=== PATIENT | female | born 1960 | race Caucasian/White ===

== ENCOUNTER 2023-02-17 23:14 | Inpatient (IN) | payer OTHER ==
[~2023-02-17] VITALS: Ht 154.9 cm; Wt 91.6 kg
[2023-02-17 23:14] VITALS: BP_SYST 171
[2023-02-17] MEDS ORDERED: NACL 0.9% 1,000 ML IV ONE ×2 (23:30)
[2023-02-17 23:56] LABS: BASOPHILS # (AUTO) 0.2 K/uL (0.0-0.2); BASOPHILS % (AUTO) 1.1 % (0.0-2.0); EOSINOPHILS % (AUTO) 0.3 % (0.0-4.0); HEMOGLOBIN 15.1 g/dL (12.0-16.0); LYMPHOCYTES # (AUTO) 3.5 K/uL (1.0-5.5); LYMPHOCYTES % (AUTO) 24.7 % (20.5-51.5); MEAN CORPUSCULAR HEMOGLOBIN 30 pg (27-31); MEAN CORPUSCULAR HGB CONC 31 % (32-36); MEAN CORPUSCULAR VOLUME 96 fL (79.0-98.0); MONOCYTES # (AUTO) 0.5 K/uL (0.0-1.0); MONOCYTES % (AUTO) 3.6 % (1.7-9.3); NEUTROPHILS # (AUTO) 9.9 K/uL (1.8-7.7); NEUTROPHILS % (AUTO) 70.3 % (40.0-70.0); PLATELET COUNT (AUTO) 300 K/uL (130-430); RED BLOOD CELL COUNT(AUTO) 5.05 MIL/uL (4.2-6.2); RED CELL DISTRIBUTION WIDTH 16.1 % (9.0-15.0); WHITE BLOOD COUNT (AUTO) 14.2 K/uL (4.8-10.8)
[2023-02-18] VITALS (19 sets, daily range): BP systolic 121–164
[2023-02-18 00:03] LABS: HEMATOCRIT 45.3 % (36-48)
[2023-02-18] MEDS ORDERED: INSULIN REGULAR, HUMAN 100 UNITS in NS 99 ML IV ONE ×2 (00:15)
[2023-02-18] MEDS ORDERED: SODIUM BICARBONATE 8.4% JECT 100 MEQ in 0.45% NACL 1,000 ML IVP SCH (00:15)
[2023-02-18 00:30] LABS: ALANINE AMINOTRANSFERASE 31 U/L (12-78); ALBUMIN 4.1 g/dL (3.4-4.8); ANION GAP 31 (5-15); ASPARTATE AMINOTRANSFERASE 11 U/L (10-37); CALCIUM 9.2 mg/dL (8.4-11.0); CHLORIDE 96 mmol/L (98-107); CREATININE 1.88 mg/dL (0.55-1.30); GFR AFRICAN AMERICAN 35 mL/min (>90); THYROID STIMULATING HORMONE 1.76 uIu/mL (0.34-4.82); TOTAL BILIRUBIN 0.6 mg/dL (0.0-1.0); UREA NITROGEN, BLOOD 15 mg/dL (8-21)
[2023-02-18 00:37] LABS: ACETONE, SERUM SMALL (NEGATIVE)
[2023-02-18 00:41] LABS: GLUCOSE 634 mg/dL (70-99)
[2023-02-18 00:51] LABS: BARBITURATE, URINE NEGATIVE (NEG <=200)
[2023-02-18 00:52] LABS: BENZODIAZEPINE, URINE NEGATIVE (NEG <=150); CANNABINOID, URINE NEGATIVE (NEG <=50); COCAINE, URINE NEGATIVE (NEG <=150); METHAMPHETAMINES SCREEN,URINE NEGATIVE (NEG <=500); OPIATE, URINE NEGATIVE (NEG <=100); PHENCYCLIDINE SCREEN,URINE NEGATIVE (NEG <=25); URINE AMPHETAMINE NEGATIVE (NEG <=500); URINE METHADONE NEGATIVE (NEG <=200); URINE OXYCODONE SCREEN NEGATIVE (NEG <=100); URINE PROPOXYPHENE SCREEN NEGATIVE (NEG <=300)
[2023-02-18 00:53] LABS: UR TRICYCLIC ANTIDEPRESSANTS NEGATIVE (NEG <=300)
[2023-02-18] MEDS ORDERED: VANCOMYCIN HCL 1,000 MG in NS 250 ML IV ONE (01:00)
[2023-02-18] MEDS ORDERED: LORazepam 2 MG/ML VIAL IVP ONE ×3 (01:00→02:00)
[2023-02-18] MEDS ORDERED: KCL 40 mEq in 100 mL (PREMIX) 100 ML IV ONE (01:00)
[2023-02-18] MEDS ORDERED: MAGNESIUM SULFATE 50 ML IV ONE (01:00)
[2023-02-18] MEDS ORDERED: PIPERACILLIN/TAZO 3.375 GM in NS 50 ML IV ONE (01:00)
[2023-02-18 01:14] LABS: ACETAMINOPHEN < 1 ug/mL (1-30); ALCOHOL, BLOOD < 3 mg/dL (<10)
[2023-02-18] MEDS ORDERED: INSULIN REGULAR, HUMAN 10 UNITS/0.1 ML, 3 ML VIAL ONE (01:31)
[2023-02-18] MEDS ORDERED: KCL 20 mEq in 100 mL (PREMIX) 200 ML IV ONE (01:33)
[2023-02-18] MEDS: cefTRIAXone 1 GM IVPB PREMIX 50 ML IV SCH ×2 (02:00→07:52)
[2023-02-18] MEDS ORDERED: PIPERACILLIN/TAZOBACTAM 3.375 GM/VIAL (ZOSYN) IV ONE (02:30)
[2023-02-18] MEDS ORDERED: VANCOMYCIN HCL 1000 MG/VIAL IV ONE (02:31)
[2023-02-18 05:14] LABS: BASOPHILS # (AUTO) 0.1 K/uL (0.0-0.2); BASOPHILS % (AUTO) 0.4 % (0.0-2.0); EOSINOPHILS % (AUTO) 0.1 % (0.0-4.0); HEMATOCRIT 42.3 % (36-48); HEMOGLOBIN 12.3 g/dL (12.0-16.0); LYMPHOCYTES # (AUTO) 3.2 K/uL (1.0-5.5); LYMPHOCYTES % (AUTO) 12.5 % (20.5-51.5); MEAN CORPUSCULAR HEMOGLOBIN 29 pg (27-31); MEAN CORPUSCULAR HGB CONC 29 % (32-36); MEAN CORPUSCULAR VOLUME 100 fL (79.0-98.0); MONOCYTES # (AUTO) 1.2 K/uL (0.0-1.0); MONOCYTES % (AUTO) 4.6 % (1.7-9.3); NEUTROPHILS # (AUTO) 21.1 K/uL (1.8-7.7); PLATELET COUNT (AUTO) 288 K/uL (130-430); RED BLOOD CELL COUNT(AUTO) 4.25 MIL/uL (4.2-6.2); RED CELL DISTRIBUTION WIDTH 16.3 % (9.0-15.0); WHITE BLOOD COUNT (AUTO) 25.6 K/uL (4.8-10.8)
[2023-02-18 05:54] LABS: ALANINE AMINOTRANSFERASE 27 U/L (12-78); ALBUMIN 3.3 g/dL (3.4-4.8); ANION GAP 27 (5-15); ASPARTATE AMINOTRANSFERASE 15 U/L (10-37); CALCIUM 7.6 mg/dL (8.4-11.0); CHLORIDE 108 mmol/L (98-107); CHOLESTEROL 301 mg/dL (<200); CREATININE 1.61 mg/dL (0.55-1.30); GFR AFRICAN AMERICAN 42 mL/min (>90); HDL CHOLESTEROL 51 mg/dL (>55); THYROID STIMULATING HORMONE 0.62 uIu/mL (0.34-4.82); TOTAL BILIRUBIN 0.4 mg/dL (0.0-1.0); TRIGLYCERIDES 351 mg/dL (30-150); UREA NITROGEN, BLOOD 15 mg/dL (8-21)
[2023-02-18 06:03] LABS: GLUCOSE 563 mg/dL (70-99)
[2023-02-18] MEDS: NACL 0.9% 1,000 ML IV SCH ×3 (07:52→14:30)
[2023-02-18] MEDS ORDERED: cefTRIAXone 1 GM IVPB PREMIX 50 ML IV SCH (09:00)
[2023-02-18 11:00] LABS: NEUTROPHILS % (AUTO) 82.4 % (40.0-70.0)
[2023-02-18 11:28] LABS: BASOPHILS # (AUTO) 0.1 K/uL (0.0-0.2); BASOPHILS % (AUTO) 0.6 % (0.0-2.0); HEMATOCRIT 41.3 % (36-48); HEMOGLOBIN 12.7 g/dL (12.0-16.0); LYMPHOCYTES # (AUTO) 2.3 K/uL (1.0-5.5); LYMPHOCYTES % (AUTO) 11.1 % (20.5-51.5); MEAN CORPUSCULAR HEMOGLOBIN 29 pg (27-31); MEAN CORPUSCULAR HGB CONC 31 % (32-36); MEAN CORPUSCULAR VOLUME 95 fL (79.0-98.0); MONOCYTES # (AUTO) 1.3 K/uL (0.0-1.0); MONOCYTES % (AUTO) 6.3 % (1.7-9.3); NEUTROPHILS # (AUTO) 17.2 K/uL (1.8-7.7); PLATELET COUNT (AUTO) 242 K/uL (130-430); RED BLOOD CELL COUNT(AUTO) 4.36 MIL/uL (4.2-6.2); RED CELL DISTRIBUTION WIDTH 15.3 % (9.0-15.0)
[2023-02-18 11:36] LABS: ALANINE AMINOTRANSFERASE 31 U/L (12-78); ALBUMIN 3.6 g/dL (3.4-4.8); ANION GAP 26 (5-15); ASPARTATE AMINOTRANSFERASE 19 U/L (10-37); CHLORIDE 112 mmol/L (98-107); CREATININE 1.47 mg/dL (0.55-1.30); GFR AFRICAN AMERICAN 46 mL/min (>90); GLUCOSE 218 mg/dL (70-99); TOTAL BILIRUBIN 0.4 mg/dL (0.0-1.0); UREA NITROGEN, BLOOD 14 mg/dL (8-21)
[2023-02-18] MEDS ORDERED: DEXTROSE 50% JECT 50 ML DISP.SYRIN IVP PRN (11:45)
[2023-02-18 11:47] LABS: ACETONE, SERUM POSITIVE (NEGATIVE)
[2023-02-18] MEDS: PIPERACILLIN/TAZO 3.375/DEX-IS 50 ML IV SCH ×2 (14:31→21:19)
[2023-02-18] MEDS ORDERED: LORazepam 2 MG/ML VIAL ONE (17:12)
[2023-02-18] MEDS: KCL 10 mEq in D5/0.45NS 1000mL 1,000 ML IV SCH (17:57)
[2023-02-18 21:28] LABS: CALCIUM 7.9 mg/dL (8.4-11.0); CREATININE 1.63 mg/dL (0.55-1.30)
[2023-02-18 22:16] LABS: URINE SODIUM, RANDOM 94 mmol/L (40-220)
[2023-02-18] MEDS: LORazepam 2 MG/ML VIAL IVP PRN (22:40)
[2023-02-19] VITALS (23 sets, daily range): BP systolic 87–174
[2023-02-19 04:50] LABS: BASOPHILS % (AUTO) 0.3 % (0.0-2.0); HEMATOCRIT 38.5 % (36-48); HEMOGLOBIN 12.5 g/dL (12.0-16.0); LYMPHOCYTES # (AUTO) 0.9 K/uL (1.0-5.5); LYMPHOCYTES % (AUTO) 8.2 % (20.5-51.5); MEAN CORPUSCULAR HEMOGLOBIN 30 pg (27-31); MEAN CORPUSCULAR HGB CONC 33 % (32-36); MEAN CORPUSCULAR VOLUME 91 fL (79.0-98.0); MONOCYTES % (AUTO) 9.2 % (1.7-9.3); NEUTROPHILS # (AUTO) 9.4 K/uL (1.8-7.7); NEUTROPHILS % (AUTO) 82.3 % (40.0-70.0); PLATELET COUNT (AUTO) 170 K/uL (130-430); RED BLOOD CELL COUNT(AUTO) 4.23 MIL/uL (4.2-6.2); RED CELL DISTRIBUTION WIDTH 15.1 % (9.0-15.0); WHITE BLOOD COUNT (AUTO) 11.4 K/uL (4.8-10.8)
[2023-02-19] MEDS: PIPERACILLIN/TAZO 3.375/DEX-IS 50 ML IV SCH ×3 (05:15→23:43)
[2023-02-19] MEDS: KCL 10 mEq in D5/0.45NS 1000mL 1,000 ML IV SCH ×3 (05:15→20:02)
[2023-02-19 05:25] LABS: CALCIUM 7.8 mg/dL (8.4-11.0); CREATININE 1.86 mg/dL (0.55-1.30); TOTAL BILIRUBIN 0.5 mg/dL (0.0-1.0)
[2023-02-19 05:54] LABS: PHOSPHORUS 0.8 mg/dL (2.7-4.5)
[2023-02-19] MEDS ORDERED: K PHOS 30 MM in NS 250 ML IV ONE (07:15)
[2023-02-19] MEDS ORDERED: POTASSIUM CHLORIDE 40 MEQ, LIDOCAINE JECT 2% PF 100 MG 75 MG in NS 250 ML IV ONE (07:15)
[2023-02-19] MEDS: INSULIN REGULAR, HUMAN 100 UNITS in NS 99 ML IV SCH ×4 (10:23→17:13)
[2023-02-19 14:33] LABS: BILIRUBIN,URINE 1+ (NEGATIVE); BLOOD, URINE 3+ (NEGATIVE); COLOR,URINE YELLOW (YELLOW); GLUCOSE,URINE 2+ (NEGATIVE); KETONES,URINE 1+ (NEGATIVE); LEUKOCYTE ESTERASE ,URINE NEGATIVE (NEGATIVE); NITRITE, URINE NEGATIVE (NEGATIVE); PROTEIN URINE 1+ (NEGATIVE); UROBILINOGEN,URINE 0.2 (0.2-1.0)
[2023-02-19 14:35] LABS: CLARITY/URINE HAZY (CLEAR)
[2023-02-19 14:56] LABS: BACTERIA,URINE MODERATE /HPF (None Seen)
[2023-02-19 14:57] LABS: YEAST,URINE Moderate /HPF (None Seen)
[2023-02-19 21:27] LABS: CALCIUM 7.7 mg/dL (8.4-11.0); CREATININE 2.4 mg/dL (0.55-1.30)
[2023-02-19] MEDS: LORazepam 2 MG/ML VIAL IVP PRN (23:47)
[2023-02-20] VITALS (28 sets, daily range): BP systolic 73–188
[2023-02-20] MEDS: KCL 10 mEq in D5/0.45NS 1000mL 1,000 ML IV SCH ×2 (01:44→08:08)
[2023-02-20] MEDS: PIPERACILLIN/TAZO 3.375/DEX-IS 50 ML IV SCH ×3 (06:39→21:28)
[2023-02-20] MEDS: LORazepam 2 MG/ML VIAL IVP PRN (06:40)
[2023-02-20 07:21] LABS: BASOPHILS % (AUTO) 0.3 % (0.0-2.0); EOSINOPHILS % (AUTO) 0.2 % (0.0-4.0); HEMATOCRIT 43.9 % (36-48); HEMOGLOBIN 14.1 g/dL (12.0-16.0); LYMPHOCYTES # (AUTO) 0.4 K/uL (1.0-5.5); LYMPHOCYTES % (AUTO) 3.1 % (20.5-51.5); MEAN CORPUSCULAR HEMOGLOBIN 29 pg (27-31); MEAN CORPUSCULAR HGB CONC 32 % (32-36); MEAN CORPUSCULAR VOLUME 91 fL (79.0-98.0); MONOCYTES % (AUTO) 7.9 % (1.7-9.3); NEUTROPHILS # (AUTO) 11.3 K/uL (1.8-7.7); NEUTROPHILS % (AUTO) 88.5 % (40.0-70.0); PLATELET COUNT (AUTO) 154 K/uL (130-430); RED BLOOD CELL COUNT(AUTO) 4.81 MIL/uL (4.2-6.2); RED CELL DISTRIBUTION WIDTH 15.8 % (9.0-15.0); WHITE BLOOD COUNT (AUTO) 12.7 K/uL (4.8-10.8)
[2023-02-20] MEDS: INSULIN REGULAR, HUMAN 100 UNITS in NS 99 ML IV SCH ×4 (07:44→13:45)
[2023-02-20 07:48] LABS: CALCIUM 7.9 mg/dL (8.4-11.0); CREATININE 2.38 mg/dL (0.55-1.30); PHOSPHORUS 2.9 mg/dL (2.7-4.5)
[2023-02-20] MEDS ORDERED: ROCURONIUM BROMIDE 10 MG/ML (ZEMURON) ONE (08:00)
[2023-02-20] MEDS ORDERED: ETOMIDATE 20 MG/ 10 ML VIAL (AMIDATE) ONE (08:00)
[2023-02-20] MEDS ORDERED: ETOMIDATE 20 MG/ 10 ML VIAL (AMIDATE) IVP ONE ×2 (09:30→09:35)
[2023-02-20] MEDS ORDERED: ROCURONIUM BROMIDE 10 MG/ML (ZEMURON) IV ONE (09:30)
[2023-02-20] MEDS ORDERED: KCL 30mEq in D5/0.45NS 1000 mL 1,000 ML IV SCH (10:15)
[2023-02-20] MEDS ORDERED: ACETYLCYSTEINE 20% 4 ML VIAL (RT) ONE (10:16)
[2023-02-20] MEDS ORDERED: BUDESONIDE 0.5 MG/2 ML AMPUL.NEB INH ONE (10:30)
[2023-02-20] MEDS ORDERED: IPRATROPIUM/ALBUTEROL SULFATE 3 ML AMPUL.NEB (DUONEB) INH PRN (10:30)
[2023-02-20] MEDS ORDERED: ACETYLCYSTEINE 20% 4 ML VIAL (RT) INH ONE (10:30)
[2023-02-20] MEDS ORDERED: ALBUTEROL SULFATE 0.083% 2.5 MG/3 ML VIAL.NEB INH PRN (10:45)
[2023-02-20] MEDS ORDERED: IPRATROPIUM BROM 0.5 MG/2.5 ML VIAL.NEB (ATROVENT) INH PRN (10:45)
[2023-02-20] MEDS ORDERED: PANTOPRAZOLE SODIUM 40 MG/VIAL (PROTONIX) IVP ONE (10:45)
[2023-02-20] MEDS ORDERED: ENOXAPARIN SODIUM 30 MG/0.3 ML SYRINGE SUBCUT ONE (11:00)
[2023-02-20] MEDS ORDERED: POTASSIUM CHLORIDE IV SCH ×2 (11:00→23:00)
[2023-02-20] MEDS ORDERED: IPRATROPIUM/ALBUTEROL SULFATE 3 ML AMPUL.NEB (DUONEB) INH SCH ×2 (11:00)
[2023-02-20] MEDS ORDERED: NACL 0.45% IV SCH ×2 (11:00→23:00)
[2023-02-20] MEDS: MIDAZOLAM IN NACL,ISO-OSMOT/PF 100 ML IV PRN ×2 (11:38→20:52)
[2023-02-20] MEDS: IPRATROPIUM BROM 0.5 MG/2.5 ML VIAL.NEB (ATROVENT) INH SCH ×3 (11:48→19:45)
[2023-02-20] MEDS: ALBUTEROL SULFATE 0.083% 2.5 MG/3 ML VIAL.NEB INH SCH ×3 (11:48→19:45)
[2023-02-20] MEDS ORDERED: POTASSIUM CHLORIDE 40 MEQ, LIDOCAINE JECT 2% PF 100 MG 50 MG in NS 250 ML IV ONE (12:00)
[2023-02-20] MEDS ORDERED: SODIUM BICARBONATE 8.4% JECT 50 MEQ/50 ML SYRINGE IVP ONE ×3 (12:44→16:45)
[2023-02-20] MEDS ORDERED: SODIUM BICARBONATE 8.4% JECT 50 MEQ/50 ML SYRINGE ONE (13:05)
[2023-02-20 13:06] LABS: CREATININE, URINE 26.4 mg/dL (Not Estab.); MICROALBUMIN URINE RANDOM 160.1 ug/mL (Not Estab.)
[2023-02-20] MEDS ORDERED: JECT IV ONE (13:15)
[2023-02-20] MEDS ORDERED: NACL 0.45% IV ONE (13:15)
[2023-02-20] MEDS ORDERED: SODIUM BICARBONATE 8.4% IV ONE (13:15)
[2023-02-20] MEDS ORDERED: POTASSIUM CHLORIDE IV ONE (13:15)
[2023-02-20] MEDS: FENTANYL CITRATE-0.9 % NACL/PF 100 ML IV PRN ×2 (14:28→20:51)
[2023-02-20] MEDS ORDERED: NOREPINEPHRINE 4 MG/4 ML VIAL IV ONE (15:10)
[2023-02-20] MEDS: NOREPINEPHRINE BITARTRATE 4 MG in NS 246 ML IV PRN ×2 (15:16→22:37)
[2023-02-20] MEDS ORDERED: INSULIN REGULAR, HUMAN 100 UNITS in NS 99 ML IV PRN ×2 (16:30)
[2023-02-20] MEDS: FLUCONAZOLE 100 mg/ NS 50 ML IV SCH (17:24)
[2023-02-20] MEDS ORDERED: COMMUNICATION ORDER XX PRN (19:00)
[2023-02-20] MEDS: BUDESONIDE 0.5 MG/2 ML AMPUL.NEB INH SCH (19:45)
[2023-02-20] MEDS: SODIUM BICARBONATE 8.4% JECT 100 MEQ in 0.45% NACL 1,000 ML IVP SCH (20:26)
[2023-02-20 21:30] LABS: ALBUMIN 2.1 g/dL (3.4-4.8); CALCIUM 7.2 mg/dL (8.4-11.0); CREATININE 2.7 mg/dL (0.55-1.30); TOTAL BILIRUBIN 0.7 mg/dL (0.0-1.0)
[2023-02-20] MEDS ORDERED: KCL 40 mEq in 100 mL (PREMIX) 100 ML IV ONE ×2 (22:30→22:36)
[2023-02-20] MEDS ORDERED: JECT IV SCH (23:00)
[2023-02-20] MEDS ORDERED: SODIUM BICARBONATE 8.4% IV SCH (23:00)
[2023-02-21] VITALS (32 sets, daily range): BP systolic 91–138
[2023-02-21] MEDS: FENTANYL CITRATE-0.9 % NACL/PF 100 ML IV PRN ×4 (00:08→18:06)
[2023-02-21] MEDS: SODIUM BICARBONATE 8.4% JECT 100 MEQ in 0.45% NACL 1,000 ML IVP SCH ×3 (04:07→21:38)
[2023-02-21] MEDS: ALBUTEROL SULFATE 0.083% 2.5 MG/3 ML VIAL.NEB INH SCH ×7 (04:14→23:12)
[2023-02-21] MEDS: IPRATROPIUM BROM 0.5 MG/2.5 ML VIAL.NEB (ATROVENT) INH SCH ×7 (04:14→23:12)
[2023-02-21] MEDS: PIPERACILLIN/TAZO 3.375/DEX-IS 50 ML IV SCH ×3 (05:46→22:12)
[2023-02-21] MEDS: MIDAZOLAM IN NACL,ISO-OSMOT/PF 100 ML IV PRN ×2 (06:22→17:46)
[2023-02-21 06:37] LABS: ALBUMIN 1.7 g/dL (3.4-4.8); CREATININE 2.86 mg/dL (0.55-1.30); TOTAL BILIRUBIN 0.7 mg/dL (0.0-1.0)
[2023-02-21] MEDS: BUDESONIDE 0.5 MG/2 ML AMPUL.NEB INH SCH ×2 (07:00→20:03)
[2023-02-21] MEDS ORDERED: ACETYLCYSTEINE 20% 4 ML VIAL (RT) INH ONE (07:00)
[2023-02-21] MEDS: INSULIN REGULAR, HUMAN 100 UNITS in NS 99 ML IV PRN ×6 (08:24→12:13)
[2023-02-21 08:33] LABS: BASOPHILS % (AUTO) 0.1 % (0.0-2.0); EOSINOPHILS % (AUTO) 0.1 % (0.0-4.0); HEMATOCRIT 34.2 % (36-48); HEMOGLOBIN 11.1 g/dL (12.0-16.0); LYMPHOCYTES # (AUTO) 1.4 K/uL (1.0-5.5); LYMPHOCYTES % (AUTO) 11.9 % (20.5-51.5); MEAN CORPUSCULAR HEMOGLOBIN 30 pg (27-31); MEAN CORPUSCULAR HGB CONC 32 % (32-36); MEAN CORPUSCULAR VOLUME 91 fL (79.0-98.0); MONOCYTES % (AUTO) 8.7 % (1.7-9.3); NEUTROPHILS % (AUTO) 79.2 % (40.0-70.0); PLATELET COUNT (AUTO) 152 K/uL (130-430); RED BLOOD CELL COUNT(AUTO) 3.76 MIL/uL (4.2-6.2); RED CELL DISTRIBUTION WIDTH 15.7 % (9.0-15.0); WHITE BLOOD COUNT (AUTO) 11.4 K/uL (4.8-10.8)
[2023-02-21] MEDS: ENOXAPARIN SODIUM 30 MG/0.3 ML SYRINGE SUBCUT SCH (08:51)
[2023-02-21] MEDS: PANTOPRAZOLE SODIUM 40 MG/VIAL (PROTONIX) IVP SCH (08:52)
[2023-02-21] MEDS: metroNIDAZOLE 500 mg/NS 100 ML IV SCH ×2 (11:31→20:54)
[2023-02-21] MEDS ORDERED: FLUCONAZOLE 100 mg/ NS 50 ML IV SCH (12:30)
[2023-02-21] MEDS ORDERED: MAGNESIUM SULFATE 50 ML IV ONE (14:15)
[2023-02-21] MEDS: FLUCONAZOLE 100 mg/ NS 50 ML IV SCH (17:34)
[2023-02-21] MEDS: NOREPINEPHRINE BITARTRATE 4 MG in NS 246 ML IV PRN ×2 (17:47→17:50)
[2023-02-22] VITALS (35 sets, daily range): BP systolic 93–137
[2023-02-22] MEDS: FENTANYL CITRATE-0.9 % NACL/PF 100 ML IV PRN ×3 (02:56→20:24)
[2023-02-22] MEDS: IPRATROPIUM BROM 0.5 MG/2.5 ML VIAL.NEB (ATROVENT) INH SCH ×6 (03:34→23:22)
[2023-02-22] MEDS: ALBUTEROL SULFATE 0.083% 2.5 MG/3 ML VIAL.NEB INH SCH ×6 (03:34→23:22)
[2023-02-22] MEDS ORDERED: INSULIN REGULAR, HUMAN 10 UNITS/0.1 ML, 3 ML VIAL IVP ONE ×5 (03:40→17:30)
[2023-02-22] MEDS: INSULIN REGULAR, HUMAN 100 UNITS in NS 99 ML IV PRN ×2 (05:02)
[2023-02-22 05:30] LABS: BASOPHILS % (AUTO) 0.3 % (0.0-2.0); EOSINOPHILS # (AUTO) 0.2 K/uL (0.0-0.4); EOSINOPHILS % (AUTO) 1.7 % (0.0-4.0); HEMATOCRIT 27.6 % (36-48); HEMOGLOBIN 9.5 g/dL (12.0-16.0); LYMPHOCYTES # (AUTO) 2.4 K/uL (1.0-5.5); LYMPHOCYTES % (AUTO) 24.8 % (20.5-51.5); MEAN CORPUSCULAR HEMOGLOBIN 30 pg (27-31); MEAN CORPUSCULAR HGB CONC 34 % (32-36); MEAN CORPUSCULAR VOLUME 87 fL (79.0-98.0); MONOCYTES # (AUTO) 0.6 K/uL (0.0-1.0); MONOCYTES % (AUTO) 5.8 % (1.7-9.3); NEUTROPHILS # (AUTO) 6.5 K/uL (1.8-7.7); NEUTROPHILS % (AUTO) 67.4 % (40.0-70.0); PLATELET COUNT (AUTO) 135 K/uL (130-430); RED BLOOD CELL COUNT(AUTO) 3.19 MIL/uL (4.2-6.2); RED CELL DISTRIBUTION WIDTH 14.9 % (9.0-15.0); WHITE BLOOD COUNT (AUTO) 9.7 K/uL (4.8-10.8)
[2023-02-22] MEDS: MIDAZOLAM IN NACL,ISO-OSMOT/PF 100 ML IV PRN ×2 (05:59→18:18)
[2023-02-22] MEDS: PIPERACILLIN/TAZO 3.375/DEX-IS 50 ML IV SCH (06:00)
[2023-02-22 06:01] LABS: ALBUMIN 1.5 g/dL (3.4-4.8); CREATININE 3.65 mg/dL (0.55-1.30); TOTAL BILIRUBIN 0.6 mg/dL (0.0-1.0)
[2023-02-22 06:25] LABS: CALCIUM 6.6 mg/dL (8.4-11.0); PHOSPHORUS 0.6 mg/dL (2.7-4.5)
[2023-02-22] MEDS: SODIUM BICARBONATE 8.4% JECT 100 MEQ in 0.45% NACL 1,000 ML IVP SCH ×2 (07:03→16:00)
[2023-02-22] MEDS: BUDESONIDE 0.5 MG/2 ML AMPUL.NEB INH SCH ×2 (08:09→19:46)
[2023-02-22] MEDS: ENOXAPARIN SODIUM 30 MG/0.3 ML SYRINGE SUBCUT SCH (08:17)
[2023-02-22] MEDS: metroNIDAZOLE 500 mg/NS 100 ML IV SCH ×2 (08:17→22:01)
[2023-02-22] MEDS: PANTOPRAZOLE SODIUM 40 MG/VIAL (PROTONIX) IVP SCH (08:17)
[2023-02-22] MEDS ORDERED: COMMUNICATION ORDER XX ONE (09:00)
[2023-02-22] MEDS ORDERED: COMMUNICATION ORDER XX PRN (09:15)
[2023-02-22] MEDS ORDERED: CALCIUM GLUCONATE 2 GM in NS 100 ML IV ONE (10:00)
[2023-02-22] MEDS ORDERED: FUROSEMIDE 20 MG/2 ML VIAL IVP ONE (10:00)
[2023-02-22] MEDS: CALCIUM GLUCONATE 1 GM in NS 100 ML IV SCH ×2 (10:37→11:27)
[2023-02-22] MEDS ORDERED: K PHOS 30 MM in NS 250 ML IV ONE (11:00)
[2023-02-22] MEDS: PIPERACILLIN/TAZO 3.375 GM in NS 50 ML IV SCH ×2 (13:13→22:01)
[2023-02-22] MEDS ORDERED: NACL 0.9% 1,000 ML IV SCH (17:00)
[2023-02-22] MEDS ORDERED: POTASSIUM CHLORIDE 40 MEQ, LIDOCAINE JECT 2% PF 100 MG 75 MG in NS 250 ML IV ONE (17:00)
[2023-02-22] MEDS: FLUCONAZOLE 100 mg/ NS 50 ML IV SCH (17:19)
[2023-02-22] MEDS: 0.45% NACL 1,000 ML IV SCH (17:54)
[2023-02-23] VITALS (34 sets, daily range): BP systolic 14–164
[2023-02-23] MEDS: ALBUTEROL SULFATE 0.083% 2.5 MG/3 ML VIAL.NEB INH SCH ×6 (02:36→23:35)
[2023-02-23] MEDS: IPRATROPIUM BROM 0.5 MG/2.5 ML VIAL.NEB (ATROVENT) INH SCH ×6 (02:37→23:35)
[2023-02-23] MEDS: FENTANYL CITRATE-0.9 % NACL/PF 100 ML IV PRN ×2 (04:30→17:10)
[2023-02-23] MEDS: PIPERACILLIN/TAZO 3.375 GM in NS 50 ML IV SCH ×3 (06:32→22:03)
[2023-02-23 07:17] LABS: BASOPHILS % (AUTO) 0.3 % (0.0-2.0); EOSINOPHILS # (AUTO) 0.3 K/uL (0.0-0.4); EOSINOPHILS % (AUTO) 3.6 % (0.0-4.0); HEMATOCRIT 30.8 % (36-48); HEMOGLOBIN 10.5 g/dL (12.0-16.0); LYMPHOCYTES # (AUTO) 1.9 K/uL (1.0-5.5); LYMPHOCYTES % (AUTO) 20.6 % (20.5-51.5); MEAN CORPUSCULAR HEMOGLOBIN 30 pg (27-31); MEAN CORPUSCULAR HGB CONC 34 % (32-36); MEAN CORPUSCULAR VOLUME 87 fL (79.0-98.0); MONOCYTES # (AUTO) 0.8 K/uL (0.0-1.0); MONOCYTES % (AUTO) 8.7 % (1.7-9.3); NEUTROPHILS # (AUTO) 6.2 K/uL (1.8-7.7); NEUTROPHILS % (AUTO) 66.8 % (40.0-70.0); PLATELET COUNT (AUTO) 140 K/uL (130-430); RED BLOOD CELL COUNT(AUTO) 3.53 MIL/uL (4.2-6.2); RED CELL DISTRIBUTION WIDTH 15.6 % (9.0-15.0); WHITE BLOOD COUNT (AUTO) 9.2 K/uL (4.8-10.8)
[2023-02-23] MEDS: BUDESONIDE 0.5 MG/2 ML AMPUL.NEB INH SCH ×2 (07:17→19:53)
[2023-02-23 07:34] LABS: CALCIUM 7.2 mg/dL (8.4-11.0); CREATININE 3.97 mg/dL (0.55-1.30); PHOSPHORUS 1.7 mg/dL (2.7-4.5)
[2023-02-23] MEDS: 0.45% NACL 1,000 ML IV SCH ×2 (08:59→18:41)
[2023-02-23] MEDS: PANTOPRAZOLE SODIUM 40 MG/VIAL (PROTONIX) IVP SCH (10:48)
[2023-02-23] MEDS: ENOXAPARIN SODIUM 30 MG/0.3 ML SYRINGE SUBCUT SCH (10:48)
[2023-02-23] MEDS: metroNIDAZOLE 500 mg/NS 100 ML IV SCH ×2 (10:53→21:25)
[2023-02-23] MEDS: FLUCONAZOLE 100 mg/ NS 50 ML IV SCH (16:31)
[2023-02-23] MEDS ORDERED: K PHOS 30 MM in NS 250 ML IV ONE (16:45)
[2023-02-24] VITALS (35 sets, daily range): BP systolic 111–151
[2023-02-24] MEDS: INSULIN REGULAR, HUMAN 100 UNITS in NS 99 ML IV PRN ×2 (02:50)
[2023-02-24] MEDS: ALBUTEROL SULFATE 0.083% 2.5 MG/3 ML VIAL.NEB INH SCH ×6 (03:19→23:24)
[2023-02-24] MEDS: IPRATROPIUM BROM 0.5 MG/2.5 ML VIAL.NEB (ATROVENT) INH SCH ×6 (03:19→23:25)
[2023-02-24] MEDS: 0.45% NACL 1,000 ML IV SCH ×2 (05:11→17:59)
[2023-02-24] MEDS: PIPERACILLIN/TAZO 3.375 GM in NS 50 ML IV SCH ×3 (05:45→23:04)
[2023-02-24 06:56] LABS: CREATININE 4.21 mg/dL (0.55-1.30); PHOSPHORUS 3.7 mg/dL (2.7-4.5)
[2023-02-24 06:59] LABS: BASOPHILS # (AUTO) 0.1 K/uL (0.0-0.2); BASOPHILS % (AUTO) 1.8 % (0.0-2.0); EOSINOPHILS # (AUTO) 0.4 K/uL (0.0-0.4); EOSINOPHILS % (AUTO) 6.3 % (0.0-4.0); HEMATOCRIT 30.9 % (36-48); HEMOGLOBIN 10.3 g/dL (12.0-16.0); LYMPHOCYTES # (AUTO) 2.2 K/uL (1.0-5.5); LYMPHOCYTES % (AUTO) 33.4 % (20.5-51.5); MEAN CORPUSCULAR HEMOGLOBIN 30 pg (27-31); MEAN CORPUSCULAR HGB CONC 33 % (32-36); MEAN CORPUSCULAR VOLUME 89 fL (79.0-98.0); MONOCYTES # (AUTO) 0.7 K/uL (0.0-1.0); MONOCYTES % (AUTO) 10.9 % (1.7-9.3); NEUTROPHILS # (AUTO) 3.2 K/uL (1.8-7.7); NEUTROPHILS % (AUTO) 47.6 % (40.0-70.0); PLATELET COUNT (AUTO) 153 K/uL (130-430); RED BLOOD CELL COUNT(AUTO) 3.48 MIL/uL (4.2-6.2)
[2023-02-24] MEDS ORDERED: D5W 1,000 ML IV PRN (07:00)
[2023-02-24] MEDS ORDERED: GLUCOSE (DEXTROSE) ORAL GEL -Adults PO PRN (07:00)
[2023-02-24] MEDS ORDERED: COMMUNICATION ORDER XX ONE (07:00)
[2023-02-24 07:14] LABS: WHITE BLOOD COUNT (AUTO) 6.7 K/uL (4.8-10.8)
[2023-02-24] MEDS: BUDESONIDE 0.5 MG/2 ML AMPUL.NEB INH SCH ×2 (07:14→20:32)
[2023-02-24] MEDS: POTASSIUM CHLORIDE 40 MEQ, LIDOCAINE JECT 2% PF 100 MG 75 MG in NS 250 ML IV PRN (08:32)
[2023-02-24] MEDS ORDERED: INSULIN GLARGINE 100 UNITS/ML, 10 ML VIAL SUBCUT SCH (09:00)
[2023-02-24] MEDS: ENOXAPARIN SODIUM 30 MG/0.3 ML SYRINGE SUBCUT SCH (09:02)
[2023-02-24] MEDS: PANTOPRAZOLE SODIUM 40 MG/VIAL (PROTONIX) IVP SCH (09:02)
[2023-02-24] MEDS: metroNIDAZOLE 500 mg/NS 100 ML IV SCH ×2 (09:02→20:43)
[2023-02-24] MEDS: INSULIN LISPRO SLIDING SCALE 100 UNITS/ML, 3 ML VIAL (humaLOG) SUBCUT PRN ×4 (13:40→20:26)
[2023-02-24] MEDS: FLUCONAZOLE 100 mg/ NS 50 ML IV SCH (18:00)
[2023-02-24] MEDS: FENTANYL CITRATE-0.9 % NACL/PF 100 ML IV PRN (20:10)
[2023-02-24] MEDS: INSULIN GLARGINE 100 UNITS/ML, 10 ML VIAL SUBCUT SCH (20:27)
[2023-02-25] VITALS (30 sets, daily range): BP systolic 95–150
[2023-02-25] MEDS: 0.45% NACL 1,000 ML IV SCH ×3 (01:11→20:25)
[2023-02-25] MEDS: FENTANYL CITRATE-0.9 % NACL/PF 100 ML IV PRN ×2 (04:40→20:30)
[2023-02-25] MEDS: IPRATROPIUM BROM 0.5 MG/2.5 ML VIAL.NEB (ATROVENT) INH SCH ×6 (04:46→23:17)
[2023-02-25] MEDS: ALBUTEROL SULFATE 0.083% 2.5 MG/3 ML VIAL.NEB INH SCH ×6 (04:46→23:16)
[2023-02-25] MEDS: PIPERACILLIN/TAZO 3.375 GM in NS 50 ML IV SCH (06:33)
[2023-02-25] MEDS: INSULIN LISPRO SLIDING SCALE 100 UNITS/ML, 3 ML VIAL (humaLOG) SUBCUT PRN ×3 (06:50→16:17)
[2023-02-25 07:01] LABS: BASOPHILS % (AUTO) 0.6 % (0.0-2.0); EOSINOPHILS # (AUTO) 0.4 K/uL (0.0-0.4); EOSINOPHILS % (AUTO) 5.8 % (0.0-4.0); HEMATOCRIT 35.5 % (36-48); HEMOGLOBIN 11.5 g/dL (12.0-16.0); LYMPHOCYTES # (AUTO) 1.8 K/uL (1.0-5.5); LYMPHOCYTES % (AUTO) 27.3 % (20.5-51.5); MEAN CORPUSCULAR HEMOGLOBIN 30 pg (27-31); MEAN CORPUSCULAR HGB CONC 33 % (32-36); MEAN CORPUSCULAR VOLUME 91 fL (79.0-98.0); MONOCYTES # (AUTO) 0.8 K/uL (0.0-1.0); MONOCYTES % (AUTO) 11.7 % (1.7-9.3); NEUTROPHILS # (AUTO) 3.7 K/uL (1.8-7.7); NEUTROPHILS % (AUTO) 54.6 % (40.0-70.0); PLATELET COUNT (AUTO) 163 K/uL (130-430); RED BLOOD CELL COUNT(AUTO) 3.88 MIL/uL (4.2-6.2); RED CELL DISTRIBUTION WIDTH 16.2 % (9.0-15.0); WHITE BLOOD COUNT (AUTO) 6.8 K/uL (4.8-10.8)
[2023-02-25 07:19] LABS: CREATININE 4.12 mg/dL (0.55-1.30)
[2023-02-25] MEDS: BUDESONIDE 0.5 MG/2 ML AMPUL.NEB INH SCH ×2 (07:29→19:32)
[2023-02-25] MEDS: PANTOPRAZOLE SODIUM 40 MG/VIAL (PROTONIX) IVP SCH (09:38)
[2023-02-25] MEDS: INSULIN GLARGINE 100 UNITS/ML, 10 ML VIAL SUBCUT SCH ×2 (09:53→20:34)
[2023-02-25] MEDS: ENOXAPARIN SODIUM 30 MG/0.3 ML SYRINGE SUBCUT SCH (09:54)
[2023-02-25] MEDS: FLUCONAZOLE 100 mg/ NS 50 ML IV SCH (18:47)
[2023-02-26] VITALS (32 sets, daily range): BP systolic 118–165
[2023-02-26] MEDS: IPRATROPIUM BROM 0.5 MG/2.5 ML VIAL.NEB (ATROVENT) INH SCH ×6 (03:23→23:30)
[2023-02-26] MEDS: ALBUTEROL SULFATE 0.083% 2.5 MG/3 ML VIAL.NEB INH SCH ×6 (03:23→23:30)
[2023-02-26] MEDS: FENTANYL CITRATE-0.9 % NACL/PF 100 ML IV PRN (05:20)
[2023-02-26] MEDS: 0.45% NACL 1,000 ML IV SCH ×2 (06:38→17:11)
[2023-02-26 07:18] LABS: BASOPHILS % (AUTO) 0.6 % (0.0-2.0); EOSINOPHILS # (AUTO) 0.3 K/uL (0.0-0.4); EOSINOPHILS % (AUTO) 3.8 % (0.0-4.0); HEMATOCRIT 31.4 % (36-48); HEMOGLOBIN 10.4 g/dL (12.0-16.0); LYMPHOCYTES # (AUTO) 2.1 K/uL (1.0-5.5); LYMPHOCYTES % (AUTO) 27.3 % (20.5-51.5); MEAN CORPUSCULAR HEMOGLOBIN 30 pg (27-31); MEAN CORPUSCULAR HGB CONC 33 % (32-36); MEAN CORPUSCULAR VOLUME 90 fL (79.0-98.0); MONOCYTES # (AUTO) 0.8 K/uL (0.0-1.0); MONOCYTES % (AUTO) 10.8 % (1.7-9.3); NEUTROPHILS # (AUTO) 4.3 K/uL (1.8-7.7); NEUTROPHILS % (AUTO) 57.5 % (40.0-70.0); PLATELET COUNT (AUTO) 163 K/uL (130-430); RED BLOOD CELL COUNT(AUTO) 3.48 MIL/uL (4.2-6.2); RED CELL DISTRIBUTION WIDTH 15.9 % (9.0-15.0); WHITE BLOOD COUNT (AUTO) 7.5 K/uL (4.8-10.8)
[2023-02-26] MEDS: BUDESONIDE 0.5 MG/2 ML AMPUL.NEB INH SCH ×2 (07:38→19:04)
[2023-02-26 07:50] LABS: CALCIUM 7.6 mg/dL (8.4-11.0); CREATININE 3.95 mg/dL (0.55-1.30)
[2023-02-26] MEDS: PANTOPRAZOLE SODIUM 40 MG/VIAL (PROTONIX) IVP SCH (08:58)
[2023-02-26] MEDS: ENOXAPARIN SODIUM 30 MG/0.3 ML SYRINGE SUBCUT SCH (09:02)
[2023-02-26] MEDS: INSULIN GLARGINE 100 UNITS/ML, 10 ML VIAL SUBCUT SCH ×2 (09:02→21:03)
[2023-02-26] MEDS: PIPERACILLIN/TAZO 2.25G/DEX-IS 50 ML IV SCH ×2 (11:09→18:13)
[2023-02-26] MEDS: POTASSIUM CHLORIDE 40 MEQ, LIDOCAINE JECT 2% PF 100 MG 75 MG in NS 250 ML IV PRN (12:50)
[2023-02-26] MEDS: INSULIN LISPRO SLIDING SCALE 100 UNITS/ML, 3 ML VIAL (humaLOG) SUBCUT PRN (15:25)
[2023-02-26] MEDS: FLUCONAZOLE 100 mg/ NS 50 ML IV SCH (18:49)
[2023-02-27] VITALS (28 sets, daily range): BP systolic 97–164
[2023-02-27] MEDS: PIPERACILLIN/TAZO 2.25G/DEX-IS 50 ML IV SCH ×4 (00:16→17:23)
[2023-02-27] MEDS: FENTANYL CITRATE-0.9 % NACL/PF 100 ML IV PRN (02:15)
[2023-02-27] MEDS: IPRATROPIUM BROM 0.5 MG/2.5 ML VIAL.NEB (ATROVENT) INH SCH ×6 (03:13→22:20)
[2023-02-27] MEDS: ALBUTEROL SULFATE 0.083% 2.5 MG/3 ML VIAL.NEB INH SCH ×6 (03:14→22:20)
[2023-02-27] MEDS: 0.45% NACL 1,000 ML IV SCH (04:22)
[2023-02-27 05:07] LABS: BASOPHILS % (AUTO) 0.5 % (0.0-2.0); EOSINOPHILS # (AUTO) 0.3 K/uL (0.0-0.4); EOSINOPHILS % (AUTO) 3.6 % (0.0-4.0); HEMATOCRIT 29.8 % (36-48); HEMOGLOBIN 9.8 g/dL (12.0-16.0); LYMPHOCYTES # (AUTO) 1.6 K/uL (1.0-5.5); LYMPHOCYTES % (AUTO) 22.4 % (20.5-51.5); MEAN CORPUSCULAR HEMOGLOBIN 30 pg (27-31); MEAN CORPUSCULAR HGB CONC 33 % (32-36); MEAN CORPUSCULAR VOLUME 90 fL (79.0-98.0); MONOCYTES # (AUTO) 0.6 K/uL (0.0-1.0); MONOCYTES % (AUTO) 8.4 % (1.7-9.3); NEUTROPHILS # (AUTO) 4.7 K/uL (1.8-7.7); NEUTROPHILS % (AUTO) 65.1 % (40.0-70.0); PLATELET COUNT (AUTO) 155 K/uL (130-430); RED BLOOD CELL COUNT(AUTO) 3.31 MIL/uL (4.2-6.2); RED CELL DISTRIBUTION WIDTH 15.9 % (9.0-15.0); WHITE BLOOD COUNT (AUTO) 7.3 K/uL (4.8-10.8)
[2023-02-27 05:30] LABS: CALCIUM 7.4 mg/dL (8.4-11.0); CREATININE 3.52 mg/dL (0.55-1.30)
[2023-02-27] MEDS: BUDESONIDE 0.5 MG/2 ML AMPUL.NEB INH SCH ×2 (07:13→19:45)
[2023-02-27] MEDS: INSULIN GLARGINE 100 UNITS/ML, 10 ML VIAL SUBCUT SCH (07:59)
[2023-02-27] MEDS: PANTOPRAZOLE SODIUM 40 MG/VIAL (PROTONIX) IVP SCH (08:57)
[2023-02-27] MEDS: ENOXAPARIN SODIUM 30 MG/0.3 ML SYRINGE SUBCUT SCH (08:57)
[2023-02-27] MEDS: DEXTROSE 50% JECT 50 ML DISP.SYRIN IVP PRN ×3 (11:01→20:23)
[2023-02-27] MEDS: D5W 1,000 ML IV SCH ×2 (13:14→23:00)
[2023-02-27] MEDS: POTASSIUM CHLORIDE 40 MEQ, LIDOCAINE JECT 2% PF 100 MG 75 MG in NS 250 ML IV PRN (14:29)
[2023-02-27] MEDS: FLUCONAZOLE 100 mg/ NS 50 ML IV SCH (18:17)
[2023-02-27] MEDS ORDERED: POTASSIUM CHLORIDE 40 MEQ, LIDOCAINE JECT 2% PF 100 MG 50 MG in NS 250 ML IV ONE (20:00)
[2023-02-27] MEDS ORDERED: D5W 1,000 ML IV PRN (20:00)
[2023-02-27] MEDS ORDERED: GLUCOSE (DEXTROSE) ORAL GEL -Adults PO PRN (20:00)
[2023-02-28] VITALS (21 sets, daily range): BP systolic 97–163
[2023-02-28] MEDS: PIPERACILLIN/TAZO 2.25G/DEX-IS 50 ML IV SCH ×4 (00:12→17:26)
[2023-02-28] MEDS: ALBUTEROL SULFATE 0.083% 2.5 MG/3 ML VIAL.NEB INH SCH ×4 (03:10→15:11)
[2023-02-28] MEDS: IPRATROPIUM BROM 0.5 MG/2.5 ML VIAL.NEB (ATROVENT) INH SCH ×4 (03:10→15:11)
[2023-02-28] MEDS: D5W 1,000 ML IV SCH (04:00)
[2023-02-28] MEDS: DEXTROSE 50% JECT 50 ML DISP.SYRIN IVP PRN (05:01)
[2023-02-28 05:31] LABS: BASOPHILS % (AUTO) 0.7 % (0.0-2.0); EOSINOPHILS # (AUTO) 0.3 K/uL (0.0-0.4); EOSINOPHILS % (AUTO) 4.4 % (0.0-4.0); HEMATOCRIT 32.3 % (36-48); HEMOGLOBIN 10.3 g/dL (12.0-16.0); LYMPHOCYTES # (AUTO) 1.9 K/uL (1.0-5.5); MEAN CORPUSCULAR HEMOGLOBIN 30 pg (27-31); MEAN CORPUSCULAR HGB CONC 32 % (32-36); MEAN CORPUSCULAR VOLUME 93 fL (79.0-98.0); MONOCYTES # (AUTO) 0.5 K/uL (0.0-1.0); NEUTROPHILS # (AUTO) 3.3 K/uL (1.8-7.7); NEUTROPHILS % (AUTO) 54.9 % (40.0-70.0); PLATELET COUNT (AUTO) 165 K/uL (130-430); RED BLOOD CELL COUNT(AUTO) 3.48 MIL/uL (4.2-6.2); RED CELL DISTRIBUTION WIDTH 16.3 % (9.0-15.0); WHITE BLOOD COUNT (AUTO) 6.1 K/uL (4.8-10.8)
[2023-02-28 06:02] LABS: CALCIUM 7.7 mg/dL (8.4-11.0); CREATININE 3.42 mg/dL (0.55-1.30)
[2023-02-28] MEDS: BUDESONIDE 0.5 MG/2 ML AMPUL.NEB INH SCH (07:16)
[2023-02-28] MEDS: ENOXAPARIN SODIUM 30 MG/0.3 ML SYRINGE SUBCUT SCH (08:29)
[2023-02-28] MEDS: PANTOPRAZOLE SODIUM 40 MG/VIAL (PROTONIX) IVP SCH (08:29)
[2023-02-28] MEDS ORDERED: QUEtiapine FUMARATE 25 MG TABLET PO ONE (10:00)
[2023-02-28] MEDS: INSULIN LISPRO SLIDING SCALE 100 UNITS/ML, 3 ML VIAL (humaLOG) SUBCUT PRN (15:21)
[2023-02-28] MEDS ORDERED: QUEtiapine FUMARATE 25 MG TABLET PO SCH (21:00)
== END 2023-02-28 19:30 | disposition short-term general hospital (02) | DRG 207 ==
LOC: SED 23:14 → SIC 02-18 01:46
PROVIDERS: ADMIT Internal Medicine; ATTEND Internal Medicine
PROC: 5A1955Z Respiratory Ventilation, Greater than 96 Consecutive Hours (ICD-10-PCS; principal; 2023-02-20)
PROC: 0B918ZZ Drainage of Trachea, Via Natural or Artificial Opening Endoscopic (ICD-10-PCS; 2023-02-20)
PROC: 5A09357 Assistance with Respiratory Ventilation, Less than 24 Consecutive Hours, Continuous Positive Airway Pressure (ICD-10-PCS; 2023-02-20)
PROC: 0BH17EZ Insertion of Endotracheal Airway into Trachea, Via Natural or Artificial Opening (ICD-10-PCS; 2023-02-20)
PROC: 4A00X4Z Measurement of Central Nervous Electrical Activity, External Approach (ICD-10-PCS; 2023-02-21)
PROC: 0B968ZZ Drainage of Right Lower Lobe Bronchus, Via Natural or Artificial Opening Endoscopic (ICD-10-PCS; 2023-02-21)
PROC: 0B938ZZ Drainage of Right Main Bronchus, Via Natural or Artificial Opening Endoscopic (ICD-10-PCS; 2023-02-21)
PROC: 0B9J8ZX Drainage of Left Lower Lung Lobe, Via Natural or Artificial Opening Endoscopic, Diagnostic (ICD-10-PCS; 2023-02-21)
PROC: 0B9J8ZX Drainage of Left Lower Lung Lobe, Via Natural or Artificial Opening Endoscopic, Diagnostic (ICD-10-PCS; 2023-02-21)
DX: J96.01 Acute respiratory failure with hypoxia (principal); E11.10 Type 2 diabetes mellitus with ketoacidosis without coma; J69.0 Pneumonitis due to inhalation of food and vomit; G93.41 Metabolic encephalopathy; N17.9 Acute kidney failure, unspecified; J98.19 Other pulmonary collapse; B37.49 Other urogenital candidiasis; E87.0 Hyperosmolality and hypernatremia; J96.02 Acute respiratory failure with hypercapnia; I12.9 Hypertensive chronic kidney disease with stage 1 through stage 4 chronic kidney disease, or unspecified chronic kidney disease; E11.22 Type 2 diabetes mellitus with diabetic chronic kidney disease; N18.9 Chronic kidney disease, unspecified; Z20.822 Contact with and (suspected) exposure to COVID-19; E87.6 Hypokalemia; E83.39 Other disorders of phosphorus metabolism; E86.0 Dehydration; E78.5 Hyperlipidemia, unspecified; R35.89 Other polyuria; E11.649 Type 2 diabetes mellitus with hypoglycemia without coma; F41.9 Anxiety disorder, unspecified; Z79.4 Long term (current) use of insulin
CPT/HCPCS: 36415; 36600; 70450-TC; 71045; 76376; 76770; 80048; 80053; 80061; 80307; 81000; 82009; 82043; 82570; 82803-TC; 82962; 83037; 83605; 83735; 83880; 83930; 84100; 84302; 84443; 84484; 84550; 85025; 87040; 87070-TC; 87081; 87086; 87101; 87205-TC; 92610-GN; 93005; 94002; 94003; 94640; 94660; 95816; 99291; 99292; A6209; C9113; G0480; G0481; G0482; J0610; J0696; J1450; J1650; J1815; J1940; J2060; J2543; J3010; J3370; J3475; J3480; J3490; J7030; J7050; J7060; J7608; J7613; J7626